=== PATIENT | male | born 1945 | race Caucasian/White ===

== ENCOUNTER → 2016-11-25 | Outpatient (CLI) | payer OTHER ==
[~2016-11-25] MED LIST: IOPAMIDOL (ISOVUE 370) 100 ML BTL IV ONE
[2016-11-25 16:57] LABS: GLOMERULAR FILTRATION RATE > 60
--- NOTE | 2016-11-25 18:31 | CT ---
Chest CTA With IV Contrast History: Mildly enlarged ascending aorta on echocardiogram, coronary artery disease. Technique: Ultrafast ultrathin [address] obtained through the chest after bolus administrat ion of 128 mL of Isovue 370 nonionic contrast without complication. Soft tissue and bone window evalu ation is performed. Dose reduction techniques were utilized. CT Chest: Findings: There are shotty noncalcified pretracheal, precarinal and hilar lymph nodes, likely of no c linical significance. There is no evidence of pneumonia, pleural effusion, mass or pneumothorax. Hear t size is normal and there is no pericardial effusion. CTA Aorta: Technique: Multiplanar and 3D reconstructions are reviewed on an independent 3D workstation. Findings: The ascending aorta is at the upper limits of normal in size measuring 4.0 cm at the level of the main pulmonary artery. This compares to the descending thoracic aorta which measures 2.8 x 3.0 cm. There is no dissection. Aortic valve is trileaflet. The valve leaflets are thin. There is dense atherosclerotic calcification of the LAD, circumflex and right coronary arteries. Overall heart size is normal without pericardial effusion. There is no specific chamber enlargement. There is no thrombu s in the left heart border left atrial appendage. There is no evidence for pulmonary embolic disease. Impression: 1, The descending aorta measures 4.0 cm. There is no dissection or significant mural athe rosclerotic plaque. 2. Triple-vessel coronary artery disease. 3. No pulmonary emboli. General information for patients regarding this examination can be found at [email or web address]. If you have questions or comments about this report, please contact me at [phone] (hospital) or [phone] (cell).
== END ==
LOC: FIMAGING 16:00
PROVIDERS: ATTEND Internal Medicine Cardiovascular Disease
DX: I77.89 Other specified disorders of arteries and arterioles (principal); I25.10 Atherosclerotic heart disease of native coronary artery without angina pectoris
CPT/HCPCS: Q9967